=== PATIENT | female | born 1940 | race Caucasian/White ===

== ENCOUNTER → 2018-11-13 | Outpatient (CLI) | payer MEDICARE, OTHER ==
[~2018-11-13] MED LIST: ACET-66 PO; ASPI-1182 PO; CYAN1TAB44 PO; DONE10TA8 PO; ESCI10TA PO; ISON300 PO; LOSA25TA41 PO; PYRI-12 PO
== END | disposition home or self-care (01) ==
LOC: RADPV 10:49
PROVIDERS: ATTEND Family Medicine
DX: M79.605 Pain in left leg (principal); M79.604 Pain in right leg
CPT/HCPCS: 93925; 93970